=== PATIENT | male | born 1990 | race Caucasian/White ===

== ENCOUNTER 2016-07-10 20:46 | Emergency (ER) | payer OTHER ==
[~2016-07-10] VITALS: Ht 177.8 cm; Wt 91.0 kg
[2016-07-10 21:40] LABS: CHLORIDE 108 mEq/L (99-109); POTASSIUM 3.9 mEq/L (3.7-5.4); SODIUM 144 mEq/L (136-147)
[2016-07-10 21:42] LABS: GLUCOSE 88 mg/dL (70-99)
[2016-07-10 21:43] LABS: ANION GAP 11 MEQ/L (2-14)
[2016-07-10 21:44] LABS: TOTAL BILIRUBIN 1.4 mg/dL (0.0-1.0)
[2016-07-10 21:45] LABS: SERUM ETHYL ALCOHOL < 10 mg/dL
[2016-07-10 21:46] LABS: ALKALINE PHOSPHATASE 129 IU/L (3-129); GFR ESTIMATE (CALCULATED) > 59 mL/min/
[2016-07-10 21:47] LABS: UREA NITROGEN (BUN) 8 mg/dL (9-23)
[2016-07-10 22:17] LABS: HEMATOCRIT 42.1 % (38.0-50.0); MCH 32.4 PG (29.0-34.0); MCHC 37.5 G/DL (30.0-36.0); MCV 86.4 FL (86-99); MEAN PLAT.VOLUME 10.7 uM^3 (9.0-12.4); PLATELET COUNT 176 K/uL (156-360); RBC DIS.WIDTH-CV 12.8 % (11.8-14.6); RBC DIS.WIDTH-SD 40.2 % (39-53); RED BLOOD COUNT 4.87 M/uL (4.00-5.50)
[2016-07-10 22:19] LABS: WHITE BLOOD COUNT 7.6 K/uL (4.1-10.2)
[2016-07-10 22:23] VITALS: BP 127/78
== END 2016-07-10 22:24 | disposition home or self-care (01) ==
LOC: EME 20:46
PROVIDERS: Emergency Medicine
DX: F43.21 Adjustment disorder with depressed mood (principal); F17.200 Nicotine dependence, unspecified, uncomplicated
CPT/HCPCS: 80053; 81003; 85027; 90837; 99281; 99285; G0480

== ENCOUNTER 2016-10-12 14:37 | Emergency (ER) | payer OTHER ==
[~2016-10-12] VITALS: Ht 177.8 cm; Wt 86.0 kg
[2016-10-12 15:35] LABS: HEMATOCRIT 45.5 % (38.0-50.0); MCH 31.5 PG (29.0-34.0); MCHC 37.4 G/DL (30.0-36.0); MCV 84.4 FL (86-99); MEAN PLAT.VOLUME 10.3 uM^3 (9.0-12.4); PLATELET COUNT 213 K/uL (156-360); RBC DIS.WIDTH-SD 36.5 % (39-53); RED BLOOD COUNT 5.39 M/uL (4.00-5.50); WHITE BLOOD COUNT 7.1 K/uL (4.1-10.2)
[2016-10-12 15:43] LABS: CHLORIDE 107 mEq/L (99-109); POTASSIUM 4.1 mEq/L (3.7-5.4); SODIUM 141 mEq/L (136-147)
[2016-10-12 15:45] LABS: GLUCOSE 78 mg/dL (70-99)
[2016-10-12 15:46] LABS: ANION GAP 13 MEQ/L (2-14)
[2016-10-12 15:48] LABS: GFR ESTIMATE (CALCULATED) > 59 mL/min/
[2016-10-12 15:49] LABS: UREA NITROGEN (BUN) 13 mg/dL (9-23)
[2016-10-12 16:29] LABS: ADD MIUA? YES; BILIRUBIN NEGATIVE; BLOOD LARGE; COLOR YELLOW ((YELLOW)); GLUCOSE (STRIP) NEGATIVE; KETONES 20; LEUKOCYTES NEGATIVE; NITRITE NEGATIVE; PROTEIN (STRIP) 100; SPECIFIC GRAVITY 1.018 (1.000-1.030); UROBILINOGEN 0.2 MG/DL (0.2-1.0)
[2016-10-12 16:33] LABS: BACTERIA NONE SEEN /HPF; EPITHELIAL CELLS RARE /HPF; MUCUS TRACE /LPF; RED BLOOD CELLS 40-50 /HPF (0-5); WHITE BLOOD CELLS 0-5 /HPF (0-5)
[2016-10-12 18:44] VITALS: BP 127/86
[2016-10-14 12:55] LABS: CHLAMYDIA TRACHOMATIS NEGATIVE; NEISSERIA GONORRHOEAE NEGATIVE
== END 2016-10-12 18:45 | disposition home or self-care (01) ==
LOC: EME 14:37
PROVIDERS: Physician Assistant
DX: R31.9 Hematuria, unspecified (principal); R39.15 Urgency of urination; F17.200 Nicotine dependence, unspecified, uncomplicated
CPT/HCPCS: 74000; 80048; 81003; 85027; 87086; 87491; 87591; 99281; 99284; J0696

== ENCOUNTER 2016-10-17 03:46 | Emergency (ER) | payer OTHER ==
[~2016-10-17] VITALS: Ht 177.8 cm; Wt 86.3 kg
[2016-10-17 04:31] LABS: CK-MB 0.8 ng/mL (0.0-4.9)
[2016-10-17 04:51] LABS: AMPHETAMINE NEGATIVE (500 ng/mL); BARBITURATES NEGATIVE (200 ng/mL); BENZODIAZEPINES NEGATIVE (150 ng/mL); COCAINE NEGATIVE (150 ng/mL); INTERNAL CONTROLS VALID? YES; METHADONE NEGATIVE (200 ng/mL); METHAMPHETAMINE NEGATIVE (500 ng/mL); OPIATES (MORPHINE) NEGATIVE (100 ng/mL); OXYCODONE NEGATIVE (100 ng/mL); PHENCYCLIDINE NEGATIVE (25 ng/mL); PROPOXYPHENE NEGATIVE (300 ng/mL); THC CANNABINOIDS NEGATIVE (50 ng/mL); TRICYCLIC ANTIDEPRESSANTS NEGATIVE (300 ng/mL)
[2016-10-17 04:59] LABS: CHLORIDE 108 mEq/L (99-109); POTASSIUM 3.6 mEq/L (3.7-5.4); SODIUM 142 mEq/L (136-147)
[2016-10-17 05:01] LABS: GLUCOSE 106 mg/dL (70-99)
[2016-10-17 05:02] LABS: ANION GAP 12 MEQ/L (2-14)
[2016-10-17 05:03] LABS: TOTAL BILIRUBIN 1.1 mg/dL (0.0-1.0)
[2016-10-17 05:04] LABS: SERUM ETHYL ALCOHOL < 10 mg/dL
[2016-10-17 05:05] LABS: ALKALINE PHOSPHATASE 114 IU/L (3-129); GFR ESTIMATE (CALCULATED) > 59 mL/min/
[2016-10-17 05:06] LABS: UREA NITROGEN (BUN) 6 mg/dL (9-23)
[2016-10-17 05:08] LABS: CREATINE KINASE 221 IU/L (1-294); TOTAL CK 221 IU/L (1-294)
[2016-10-17 05:24] LABS: ADD MIUA? NO; BILIRUBIN NEGATIVE; BLOOD NEGATIVE; COLOR STRAW ((YELLOW)); GLUCOSE (STRIP) NEGATIVE; KETONES NEGATIVE; LEUKOCYTES NEGATIVE; NITRITE NEGATIVE; PROTEIN (STRIP) NEGATIVE; SPECIFIC GRAVITY 1.004 (1.000-1.030); UCUL ADDED? NO; UROBILINOGEN 0.2 MG/DL (0.2-1.0)
[2016-10-17 05:28] LABS: EOSINOPHIL (%) 1.7 % (0-5); EOSINOPHIL COUNT 0.1 K/uL (0-0.3); HEMATOCRIT 42.2 % (38.0-50.0); IMMATURE GRANULOCYTE (%) 0.3 % (0.0-0.7); INSTRUMENT ABS NEUTROPHIL CT 4.7 K/uL; LYMPHOCYTE COUNT 2.2 K/uL (1.0-2.8); MCH 31.9 PG (29.0-34.0); MCHC 37.7 G/DL (30.0-36.0); MCV 84.6 FL (86-99); MEAN PLAT.VOLUME 10.3 uM^3 (9.0-12.4); MONOCYTE (%) 6.8 % (3-12); MONOCYTE COUNT 0.5 K/uL (0-0.8); NEUTROPHIL (%) 61.8 % (45-76); NEUTROPHIL COUNT 4.7 K/uL (1.8-6.4); PLATELET COUNT 238 K/uL (156-360); RBC DIS.WIDTH-CV 12.3 % (11.8-14.6); RBC DIS.WIDTH-SD 36.9 % (39-53); RED BLOOD COUNT 4.99 M/uL (4.00-5.50); WHITE BLOOD COUNT 7.5 K/uL (4.1-10.2)
[2016-10-17] MEDS ORDERED: REGLAN10 MG PO (05:47)
[2016-10-17 05:50] VITALS: BP 131/80
== END 2016-10-17 06:08 | disposition home or self-care (01) ==
LOC: EME 03:46
PROVIDERS: Emergency Medicine
DX: R56.9 Unspecified convulsions (principal); R51 Headache; N20.0 Calculus of kidney; F17.200 Nicotine dependence, unspecified, uncomplicated
CPT/HCPCS: 70450; 74176; 80053; 81003; 82550; 82553; 85025; 93005; 99281; 99284; G0480; J2765; J7030